=== PATIENT | female | born 1955 | race Caucasian/White ===

== ENCOUNTER → 2022-11-08 14:21 | Outpatient (CLI) | payer MEDICARE, BC, SELFPAY ==
[2022-11-08 15:07] LABS: Add Manual Diff / Slide Review NO; Basophils Absolute Auto 0 /uL (0-100); Basophils Percent Auto 0.4 % (0-2); Eosinophils Absolute Auto 200 /uL (0-450); Eosinophils Percent Auto 3.3 % (2-4); Hematocrit 39.1 % (36-46); Hemoglobin 13.1 g/dL (12.0-16.0); Lymphocytes Absolute Auto 1500 /uL (1100-4500); Lymphocytes Percent Auto 29.3 % (25-40); Mean Corpuscular HGB Conc 33.5 % (30-36); Mean Corpuscular Volume 89.6 fL (80-100); Monocytes Absolute Auto 500 /uL (0-900); Monocytes Percent Auto 9.8 % (3-14); Neutrophils Absolute Auto 2900 /uL (1500-7000); Neutrophils Percent Auto 57.2 % (50-75); Platelet Count 235 X10^3/uL (150-400); Red Blood Cell Count 4.37 X10^6/uL (4.0-5.2); Red Cell Distribution Width 13.9 % (11.6-14.8)
[2022-11-08 15:17] LABS: Alanine Aminotransferase 25 IU/L (<35); Albumin 3.8 g/dL (3.5-5.0); Albumin Globulin Ratio 1.2 (1.0-2.8); Alkaline Phosphatase 55 U/L (38-126); Aspartate Aminotransferase 18 IU/L (14-36); BUN Creatinine Ratio 23.1 (6-22); Bilirubin Total 0.3 mg/dL (0.2-1.3); Blood Urea Nitrogen 18 mg/dL (7-17); Calcium 8.8 mg/dL (8.4-10.2); Carbon Dioxide 35 mmol/L (22-32); Chloride 103 mmol/L (98-107); Estimated Glomerular Filt Rate > 60 mL/min (>60); Globulin 3.2 g/dL (1.7-4.1); Glucose 90 mg/dL (80-110); HEMOLYSIS < 15 (0-50); Potassium 4.2 mmol/L (3.4-5.1); Sodium 141 mmol/L (137-145)
[2022-11-08 15:33] LABS: Prolactin 15.3 ng/mL (3.0-18.6)
[2022-11-08 15:52] LABS: Thyroid Stimulating Hormone 1.76 uIU/mL (0.47-4.68)
[2022-11-08 16:22] LABS: Vitamin B12 467 pg/mL (239-931)
== END ==
PROVIDERS: PCP Nurse Practitioner Family; Referring Provider Nurse Practitioner Family; Visit Provider Nurse Practitioner Family
DX: G40.509 Epileptic seizures related to external causes, not intractable, without status epilepticus (principal); R41.82 Altered mental status, unspecified
CPT/HCPCS: 36415; 80053; 82607; 82746; 84146; 84443; 85025

== ENCOUNTER 2023-02-23 10:40 | Emergency (ER) | payer MEDICARE, BC, SELFPAY ==
--- NOTE | 2023-02-23 10:47 | ED_ITS ---
HPI - General Adult General Chief complaint: Seizure Stated complaint: seizure Time Seen by Provider: 02/23/23 10:46 History of Present Illness HPI narrative: 67-year-old female nonsmoker with history of Alzheimer's, seizures is a DNR, DNI with selective treatment presents from a local [facility] for evaluation of seizures. It was reported that she had 2 witnessed seizures that were described as relatively brief and shaking and twitching of her upper body. The 2 seizures were about 10 minutes apart and EMS was called for evaluation. The patient was postictal at the time of their arrival but had returned to baseline by the time they arrived here in the emergency department. Her last seizure was reported to have been about 1 month ago. Nursing staff reports no change in her dosing regimen or any chance of missed doses of her antiepileptics. She is had no recent trauma or injury, no surgical interventions, no fever or chills. Related Data Allergies Allergy/AdvReac Type Severity Reaction Status Date / Time No Known Drug Allergies Allergy Verified 02/23/23 10:52 Review of Systems Review of Systems ROS Unobtainable: Unobtainable due to mental status/LOC Exam Narrative Exam Narrative: GENERAL: [67] year old patient appears stated age. Well-developed patient, in mild distress. Pleasantly confused, opens eyes to discussion, dysarthria and aphasia at baseline per report from medics and staff HEAD: Atraumatic. Normocephalic. EYES: Pupils equal round and reactive. Extraocular motions intact. No scleral icterus. No injection or drainage. ENT: Nose without bleeding, purulent drainage. Throat without erythema, tonsillar hypertrophy or exudate. Airway patent. NECK: Trachea midline. Non tender CARDIOVASCULAR: Regular rate and rhythm without murmurs, gallops, or rubs. RESPIRATORY: Clear to auscultation. Breath sounds equal bilaterally. No wheezes, rales, or rhonchi. GASTROINTESTINAL: Abdomen soft, non-tender, nondistended. EXTREMITIES: No edema or joint tenderness. BACK: Nontender without deformity or crepitance. No flank tenderness. NEURO: Cranial nerves 2-12 grossly intact SKIN: No rash or erythema of visible areas Initial Vital Signs Initial Vital Signs: Vital Signs Temperature 97.5 F L 02/23/23 10:48 Pulse Rate 73 02/23/23 10:48 Respiratory Rate 18 02/23/23 10:48 Blood Pressure 120/58 L 08/26/23 10:48 Pulse Oximetry 97 02/23/23 10:48 Oxygen Delivery Method Room Air 02/23/23 10:48 Course Orders Ordered: Discontinued Medications Levetiracetam 500 mg/ Sodium (Chloride) 105 mls @ 420 mls/hr IV NOW ONE Stop: 02/23/23 10:47 Last Infusion: 02/23/23 11:15 Dose: 0 mls/hr Documented By: Admin: 02/23/23 10:59 Dose: 420 mls/hr Documented By: DONALD Medical Decision Making Lab Data 02/23/23 11:10 02/23/23 11:10 Labs: Lab Results 02/23/23 02/23/23 Range/Units 11:10 11:10 WBC 8.0 (4.5-11.0) X10^3/uL RBC 4.50 (4.0-5.2) X10^6/uL Hgb 13.6 (12.0-16.0) g/dL Hct 40.1 (36-46) % MCV 89.1 (80-100) fL MCH 30.3 (26-34) PG MCHC 34.1 (30-36) % RDW 13.8 (11.6-14.8) % Plt Count 184 (150-400) X10^3/uL Neut % (Auto) 75.8 H (50-75) % Lymph % (Auto) 15.0 L (25-40) % [place] % (Auto) 8.3 (3-14) % Eos % (Auto) 0.7 L (2-4) % Baso % (Auto) 0.2 (0-2) % Neut # (Auto) 6100 (2173-2105) /uL Lymph # (Auto) 1200 (3140-2628) /uL [place] # (Auto) 700 (0-900) /uL Eos # (Auto) 100 (0-450) /uL Baso # (Auto) 0 (0-100) /uL Sodium 137 (137-145) mmol/L Potassium 3.8 (3.4-5.1) mmol/L Chloride 106 (98-107) mmol/L Carbon Dioxide 25 (22-32) mmol/L BUN 14 (7-17) mg/dL Creatinine 0.69 (0.52-1.04) mg/dL Estimated GFR > 60 (>60) mL/min BUN/Creatinine Ratio 20.3 (6-22) Glucose 117 H (80-110) mg/dL Calcium 8.9 (8.4-10.2) mg/dL Magnesium 1.8 (1.6-2.3) mg/dL Total Bilirubin 0.6 (0.2-1.3) mg/dL AST 26 (14-36) IU/L ALT 32 (<35) IU/L Alkaline Phosphatase 45 (38-126) U/L Total Protein 6.9 (6.3-8.2) g/dL Albumin 3.9 (3.5-5.0) g/dL Globulin 3.0 (1.7-4.1) g/dL Albumin/Globulin Ratio 1.3 (1.0-2.8) MDM Narrative Medical decision making narrative: [67] year old patient presents with Multiple etiologies for patient's symptoms considered including, but not limited to: [Breakthrough seizure versus secondary cause such as electrolyte abnormality or other] Prior Charts reviewed in our EMR Primary Historian: patient's nursing staff through EMS Labs reviewed and interpreted by myself: no leukocytosis, no anemia, electrolytes within normal, glucose 117, History and physical reassuring, two brief seizures with return to baseline. No signs of secondary cause. Patient loaded with Keppra. Patient at baseline for duration Patient's symptoms improved over duration of stay with above-stated therapies. Findings and discharge diagnosis discussed with patient/family followed by verbalization of understanding Return precautions discussed with patient/family whom verbalize understanding of diagnosis and plan Discharge Plan Departure Patient Disposition: Home Clinical Impression: Epileptic seizure Instructions: DI for Seizure Disorder -- Adult Activity Restrictions/Additional Instructions: *You have been diagnosed with [breakthrough seizure] *What to do: *Please continue to take your regular medications as directed. *Please follow up with your primary care provider in 2-3 days, call for an appointment. Let them know you were seen in the Emergency Department and that we ask that you be seen in follow up. We will electronically transmit a record of today's note if your PCP is in our system *If you do not have a primary care provider please contact the [facility] Resource line at [phone]. They will ask some questions about your medical history and help get you set up with a doctor in the community. *Return to Emergency Department if you should have any new, worsening or concerning symptoms, such as [fever greater than 101 F, shaking chills, worsening pain, persistent vomiting or other bothersome symptoms] Referrals: Ce Awad ARNP [Primary Care Provider] - Stand Alone Forms: Patient Portal/API
[2023-02-23 10:48] VITALS: BP 120/58; PULSE 73; RESP 18; TEMP 36.4; O2SAT 97
[2023-02-23] MEDS: levETIRAcetam 500 MG in SODIUM CHLORIDE 0.9% 100 ML 420 MG IV (10:59)
[2023-02-23 11:31] LABS: Alanine Aminotransferase 32 IU/L (<35); Albumin 3.9 g/dL (3.5-5.0); Albumin Globulin Ratio 1.3 (1.0-2.8); Alkaline Phosphatase 45 U/L (38-126); Aspartate Aminotransferase 26 IU/L (14-36); BUN Creatinine Ratio 20.3 (6-22); Bilirubin Total 0.6 mg/dL (0.2-1.3); Blood Urea Nitrogen 14 mg/dL (7-17); Calcium 8.9 mg/dL (8.4-10.2); Carbon Dioxide 25 mmol/L (22-32); Chloride 106 mmol/L (98-107); Estimated Glomerular Filt Rate > 60 mL/min (>60); Glucose 117 mg/dL (80-110); HEMOLYSIS 39 (0-50); Magnesium 1.8 mg/dL (1.6-2.3); Potassium 3.8 mmol/L (3.4-5.1); Sodium 137 mmol/L (137-145); Total Protein 6.9 g/dL (6.3-8.2)
[2023-02-23 11:37] VITALS: BP 120/58; PULSE 80; RESP 14; O2SAT 96
[2023-02-23 11:43] LABS: Add Manual Diff / Slide Review NO; Basophils Absolute Auto 0 /uL (0-100); Basophils Percent Auto 0.2 % (0-2); Eosinophils Absolute Auto 100 /uL (0-450); Eosinophils Percent Auto 0.7 % (2-4); Hematocrit 40.1 % (36-46); Hemoglobin 13.6 g/dL (12.0-16.0); Lymphocytes Absolute Auto 1200 /uL (1100-4500); Mean Corpuscular HGB Conc 34.1 % (30-36); Mean Corpuscular Hemoglobin 30.3 PG (26-34); Mean Corpuscular Volume 89.1 fL (80-100); Monocytes Absolute Auto 700 /uL (0-900); Monocytes Percent Auto 8.3 % (3-14); Neutrophils Absolute Auto 6100 /uL (1500-7000); Neutrophils Percent Auto 75.8 % (50-75); Platelet Count 184 X10^3/uL (150-400); Red Cell Distribution Width 13.8 % (11.6-14.8)
[2023-02-23 11:47] VITALS: RESP 27; O2SAT 97
[2023-02-23 12:00] VITALS: BP 106/58; PULSE 90; RESP 25; O2SAT 98
[2023-02-26 13:45] LABS: Levetiracetam Keppra 23.6 ug/mL (10.0-40.0)
== END 2023-02-23 12:40 | disposition home or self-care (01) ==
PROVIDERS: Emergency Provider Emergency Medicine; PCP Nurse Practitioner Family
DX: G40.909 Epilepsy, unspecified, not intractable, without status epilepticus (principal)
CPT/HCPCS: 36415; 80053; 80177; 83735; 85025; 93005; 96365; 99284; J1953

== ENCOUNTER 2023-03-05 17:38 | Observation (INO) | payer MEDICARE, BC, SELFPAY ==
[2023-03-05] VITALS (45 sets, daily range): BP systolic 91–179; BP diastolic 53–96; PULSE 91–132; RESP 14–56; TEMP 36.7–38.1; O2SAT 86–100
--- NOTE | 2023-03-05 17:51 | DI.RAD.S_ITS ---
PROCEDURE: XR CHEST 1V INDICATIONS: suspected sepsis TECHNIQUE: One view of the chest was acquired. COMPARISON: None. FINDINGS: Surgical changes and devices: None. Lungs and pleura: Lungs are clear. No pleural effusions or pneumothorax. Mediastinum: Mediastinal contours appear normal. Heart size is normal. Bones and chest wall: No suspicious bony lesions. Overlying soft tissues appear unremarkable. IMPRESSION: Portable chest within normal limits for age. Dictated by: Jazmyn Aviles M.D. on 03/05/2023 at 18:30 Approved by: Jazmyn Aviles M.D. on 03/05/2023 at 18:30
[2023-03-05] MEDS: SODIUM CHLORIDE 0.9% 1,000 ML 1000 ML IV (18:06)
[2023-03-05 18:12] LABS: Add Manual Diff / Slide Review NO; Basophils Absolute Auto 0 /uL (0-100); Basophils Percent Auto 0.2 % (0-2); Eosinophils Absolute Auto 0 /uL (0-450); Eosinophils Percent Auto 0.2 % (2-4); Hematocrit 40.1 % (36-46); Lymphocytes Absolute Auto 1100 /uL (1100-4500); Lymphocytes Percent Auto 10.9 % (25-40); Mean Corpuscular Volume 88.3 fL (80-100); Monocytes Absolute Auto 900 /uL (0-900); Monocytes Percent Auto 9.6 % (3-14); Neutrophils Absolute Auto 7800 /uL (1500-7000); Neutrophils Percent Auto 79.1 % (50-75); Platelet Count 428 X10^3/uL (150-400); Red Blood Cell Count 4.54 X10^6/uL (4.0-5.2); Red Cell Distribution Width 13.3 % (11.6-14.8); White Blood Cell Count 9.9 X10^3/uL (4.5-11.0)
[2023-03-05 18:13] LABS: PTT Partial Thromboplastin Tim 43 SECONDS (26-36)
[2023-03-05 18:19] LABS: Lactate (Lactic Acid) 1.6 mmol/L (0.7-2.1)
[2023-03-05 18:20] LABS: Alanine Aminotransferase 51 IU/L (<35); Albumin 3.9 g/dL (3.5-5.0); Albumin Globulin Ratio 0.9 (1.0-2.8); Alkaline Phosphatase 110 U/L (38-126); Aspartate Aminotransferase 25 IU/L (14-36); BUN Creatinine Ratio 30.7 (6-22); Bilirubin Total 0.8 mg/dL (0.2-1.3); Blood Urea Nitrogen 23 mg/dL (7-17); Calcium 10.2 mg/dL (8.4-10.2); Carbon Dioxide 33 mmol/L (22-32); Chloride 101 mmol/L (98-107); Estimated Glomerular Filt Rate > 60 mL/min (>60); Globulin 4.4 g/dL (1.7-4.1); Glucose 121 mg/dL (80-110); Lipase 22 U/L (23-300); Potassium 4.2 mmol/L (3.4-5.1); Sodium 144 mmol/L (137-145); Total Protein 8.3 g/dL (6.3-8.2)
--- NOTE | 2023-03-05 18:31 | PC.NURSE ---
Pt arrives from [facility] via EMS. EMS states altered mental status and increasing HR for several days, per caregiver. Pt is restless, mildly aggressive, swings her arms at nurses/techs with a clenched fist. GCS 13. Mata placed, temp sensing probe.
[2023-03-05 18:38] LABS: HEMOLYSIS < 15 (0-50); Procalcitonin 0.27 ng/mL (<0.5)
[2023-03-05 19:04] LABS: COVID19 -Nasal RAPID Negative (Negative)
[2023-03-05 19:17] LABS: INR 1.3 (0.9-1.3)
[2023-03-05 19:26] LABS: Appearance Urine UA SL CLOUDY; Bilirubin Urine UA NEGATIVE (NEGATIVE); Color Urine UA YELLOW; Glucose Urine UA NEGATIVE (Negative); Ketones Urine UA TRACE (NEGATIVE); Leukocyte Esterase Urine UA TRACE (NEGATIVE); Nitrite Urine UA NEGATIVE (Negative); Occult Blood Urine UA 1+ (Negative); Protein Urine UA TRACE (Negative); Specific Gravity Urine UA 1.025 (1.000-1.035)
--- NOTE | 2023-03-05 19:37 | ED.AMS ---
HPI - Altered Mental Status General Chief Complaint: Altered Mental Status Stated Complaint: Nausea/Vomiting/High HR Time Seen by Provider: 03/05/23 17:52 Source: EMS Mode of arrival: EMS History of Present Illness HPI narrative: Patient 67-year-old female with a history of advanced Alzheimer's, seizures lives in a local memory care facility is a DNR DNI selective interventions presenting today with possible increase in seizures. Facility reports that she had a couple of seizures, also no real witness. AFTERNOON BABYSITTER called to report to earlier [place] doctor there may been seizures. Today possibly more confused. is at bedside he is a primary historian. Chart from 02/23/2023 has also been reviewed. She is noted to be febrile here in the ED low-grade 100.4 -100.6. She is talking gibberish which reports is baseline. She does not appear to be in pain. He to is an overall poor historian. Related Data Allergies Allergy/AdvReac Type Severity Reaction Status Date / Time No Known Drug Allergies Allergy Verified 02/23/23 10:52 Review of Systems Review of Systems ROS Unobtainable: All systems reviewed & are unremarkable except as noted in HPI and below Exam Initial Vital Signs Initial Vital Signs: Vital Signs Temperature 99.4 F 03/05/23 17:48 Pulse Rate 120 H 03/05/23 17:48 Respiratory Rate 18 03/05/23 17:48 Blood Pressure 179/96 H 03/05/23 17:48 Pulse Oximetry 100 03/05/23 17:48 Oxygen Delivery Method Room Air 03/05/23 17:48 GENERAL: Alert confused 67-year-old female HEENT: Head atraumatic,EOMI, pupils reactive, face symmetric, moist mucous membranes CARDIOVASCULAR: Regular rate and rhythm without murmurs, rubs or gallops. RESPIRATORY: Breath sounds equal bilaterally, no wheezes rales or rhonchi. ABDOMEN: Soft, nontender. Normoactive bowel sounds all 4 quadrants. No guarding or rebound. EXTREMITIES: Normal range of motion, no clubbing or edema. Neurovascularly intact NEUROLOGICAL: Moving all extremities no facial droop talking gibberish SKIN: Warm, dry, no laceration, no petechiae, no rashes or lesions. Course Orders Ordered: ED Orders 03/05/23 23:20 Education, smoking cessation ONGOING 03/05/23 23:30 Basic Metabolic Panel DAILY Complete Blood Count AUTO DIFF DAILY Acetaminophen (Acetaminophen 325 Mg Tablet) 650 mg PO Q6H [facility] Last Admin: 03/06/23 05:10 Dose: Not Given Documented By: Admin: 03/06/23 00:36 Dose: Not Given Documented By: MADELIN Calcium Carbonate (Calcium Carbonate 500 Mg Tab) 1,000 mg PO Q4HR PRN PRN Reason: Dyspepsia Enoxaparin Sodium (Enoxaparin 40 Mg/0.4 Ml Syringe) 40 mg SUBCUT DAILY [facility] Sodium Chloride (Normal Saline 0.9%) 1,000 mls @ 100 mls/hr IV CONT [facility] Last Infusion: 03/06/23 00:37 Dose: 100 mls/hr Documented By: Admin: 03/05/23 23:36 Dose: 100 mls/hr Documented By: BRANDI Ceftriaxone Sodium 1,000 mg/ (Sodium Chloride) 100 mls @ 200 mls/hr IV DAILY [facility] Naloxone HCl (Naloxone 0.4 Mg/Ml Vial) 0.2 mg IV Q2MIN PRN PRN Reason: Opiate Reversal Ondansetron HCl (Ondansetron 4 Mg/2 Ml Inj) 4 mg IV NOW PRN PRN Reason: Nausea And Vomiting Ondansetron HCl (Ondansetron 4 Mg Odt) 4 mg SL NOW PRN PRN Reason: Nausea And Vomiting Ondansetron HCl (Ondansetron 4 Mg/2 Ml Inj) 4 mg IV Q8HR PRN PRN Reason: Nausea And Vomiting Sennosides (Sennosides 8.6 Mg Tablet) 17.2 mg PO BID [facility] Last Admin: 03/06/23 00:37 Dose: Not Given Documented By: MADELIN Sodium Biphosphate/Sodium Phosphate (Fleets Enema) 1 each AR PRN PRN PRN Reason: Constipation Discontinued Medications Sodium Chloride (Normal Saline 0.9%) 1,000 mls @ 1,000 mls/hr IV BOLUS ONE Stop: 03/05/23 18:50 Last Infusion: 03/05/23 19:10 Dose: 0 mls/hr Documented By: Admin: 03/05/23 18:06 Dose: 1,000 mls/hr Documented By: ANGELLA Sodium Chloride (Normal Saline 0.9%) 1,000 mls @ 1,000 mls/hr IV BOLUS ONE Stop: 03/05/23 18:58 Last Admin: 03/05/23 18:24 Dose: Not Given Documented By: ANGELLA Ceftriaxone Sodium 1,000 mg/ (Sodium Chloride) 100 mls @ 200 mls/hr IV NOW ONE Stop: 03/05/23 20:08 Last Infusion: 03/05/23 21:09 Dose: 0 mls/hr Documented By: Admin: 03/05/23 20:35 Dose: 200 mls/hr Documented By: Ketorolac Tromethamine (Ketorolac 30 Mg/Ml Vial) 15 mg IV NOW ONE Stop: 03/05/23 19:43 Last Admin: 03/05/23 19:47 Dose: 15 mg Documented By: Lorazepam (Lorazepam 2 Mg/Ml Inj) 0.5 mg IV NOW ONE Stop: 03/05/23 19:43 Last Admin: 03/05/23 19:47 Dose: 0.5 mg Documented By: Vital Signs Vital signs: Vital Signs - 8 hr 03/05/23 21:30 03/05/23 21:30 03/05/23 21:45 Temperature 99.0 F 98.6 F Pulse Rate 97 H 95 H Respiratory Rate 15 15 Blood Pressure 94/55 L Pulse Oximetry 100 100 Oxygen Delivery Method Oxygen Flow Rate 03/05/23 22:00 03/05/23 22:00 03/05/23 22:15 Temperature 98.4 F 98.2 F Pulse Rate 92 H 93 H Respiratory Rate 15 18 Blood Pressure 92/55 L Pulse Oximetry 100 98 Oxygen Delivery Method Oxygen Flow Rate 03/05/23 22:30 03/05/23 22:30 03/05/23 22:45 Temperature 98.1 F 98.1 F Pulse Rate 91 H 93 H Respiratory Rate 16 14 Blood Pressure 137/91 H Pulse Oximetry 100 Oxygen Delivery Method Nasal Cannula Oxygen Flow Rate 2 03/05/23 23:00 03/05/23 23:01 03/05/23 23:01 Temperature 98.1 F 98.1 F Pulse Rate 97 H 101 H Respiratory Rate 15 16 Blood Pressure 91/54 L Pulse Oximetry 98 98 Oxygen Delivery Method Oxygen Flow Rate 03/05/23 23:15 Temperature 98.1 F Pulse Rate 92 H Respiratory Rate 17 Blood Pressure Pulse Oximetry 98 Oxygen Delivery Method Oxygen Flow Rate MDM - Altered Mental Status Lab Data 03/05/23 17:47 09/05/23 17:47 Labs: Lab Results 03/05/23 03/05/23 03/05/23 Range/Units 17:47 17:47 17:47 WBC 9.9 (4.5-11.0) X10^3/uL RBC 4.54 (4.0-5.2) X10^6/uL Hgb 14.0 (12.0-16.0) g/dL Hct 40.1 (36-46) % MCV 88.3 (80-100) fL MCH 31.0 (26-34) PG MCHC 35.0 (30-36) % RDW 13.3 (11.6-14.8) % Plt Count 428 H (150-400) X10^3/uL Neut % (Auto) 79.1 H (50-75) % Lymph % (Auto) 10.9 L (25-40) % [place] % (Auto) 9.6 (3-14) % Eos % (Auto) 0.2 L (2-4) % Baso % (Auto) 0.2 (0-2) % Neut # (Auto) 7800 H (6469-1839) /uL Lymph # (Auto) 1100 (2012-4772) /uL [place] # (Auto) 900 (0-900) /uL Eos # (Auto) 0 (0-450) /uL Baso # (Auto) 0 (0-100) /uL PT 15.0 H (10.1-12.7) SECONDS INR 1.3 (0.9-1.3) APTT 43 H (26-36) SECONDS Sodium 144 (137-145) mmol/L Potassium 4.2 (3.4-5.1) mmol/L Chloride 101 (98-107) mmol/L Carbon Dioxide 33 H (22-32) mmol/L BUN 23 H (7-17) mg/dL Creatinine 0.75 (0.52-1.04) mg/dL Estimated GFR > 60 (>60) mL/min BUN/Creatinine Ratio 30.7 H (6-22) Glucose 121 H (80-110) mg/dL Lactate (0.7-2.1) mmol/L Calcium 10.2 (8.4-10.2) mg/dL Total Bilirubin 0.8 (0.2-1.3) mg/dL AST 25 (14-36) IU/L ALT 51 H (<35) IU/L Alkaline Phosphatase 110 (38-126) U/L Total Protein 8.3 H (6.3-8.2) g/dL Albumin 3.9 (3.5-5.0) g/dL Globulin 4.4 H (1.7-4.1) g/dL Albumin/Globulin Ratio 0.9 L (1.0-2.8) Lipase 22 L (23-300) U/L Procalcitonin 0.27 (<0.5) ng/mL Urine Color Urine Appearance Urine pH (4.5-8.0) Ur Specific [place] (1.000-1.035) Urine Protein (Negative) Urine Glucose (UA) (Negative) g/dL Urine Ketones (NEGATIVE) Urine Occult Blood (Negative) Urine Nitrate (Negative) Urine Bilirubin (NEGATIVE) Urine Urobilinogen (0.2) E.U./dL Ur Leukocyte Esterase (NEGATIVE) Urine RBC (0-5/HPF) Urine WBC (0-5/HPF) Ur Squamous Epith Cells (0-5/HPF) Urine Bacteria (None) Ur Culture Indicated? SARS-CoV-2 (PCR) (Negative) 03/05/23 03/05/23 03/05/23 Range/Units 17:47 18:07 18:12 WBC (4.5-11.0) X10^3/uL RBC (4.0-5.2) X10^6/uL Hgb (12.0-16.0) g/dL Hct (36-46) % MCV (80-100) fL MCH (26-34) PG MCHC (30-36) % RDW (11.6-14.8) % Plt Count (150-400) X10^3/uL Neut % (Auto) (50-75) % Lymph % (Auto) (25-40) % [place] % (Auto) (3-14) % Eos % (Auto) (2-4) % Baso % (Auto) (0-2) % Neut # (Auto) (8242-4616) /uL Lymph # (Auto) (8783-4039) /uL [place] # (Auto) (0-900) /uL Eos # (Auto) (0-450) /uL Baso # (Auto) (0-100) /uL PT (10.1-12.7) SECONDS INR (0.9-1.3) APTT (26-36) SECONDS Sodium (137-145) mmol/L Potassium (3.4-5.1) mmol/L Chloride (98-107) mmol/L Carbon Dioxide (22-32) mmol/L BUN (7-17) mg/dL Creatinine (0.52-1.04) mg/dL Estimated GFR (>60) mL/min BUN/Creatinine Ratio (6-22) Glucose (80-110) mg/dL Lactate 1.6 (0.7-2.1) mmol/L Calcium (8.4-10.2) mg/dL Total Bilirubin (0.2-1.3) mg/dL AST (14-36) IU/L ALT (<35) IU/L Alkaline Phosphatase (38-126) U/L Total Protein (6.3-8.2) g/dL Albumin (3.5-5.0) g/dL Globulin (1.7-4.1) g/dL Albumin/Globulin Ratio (1.0-2.8) Lipase (23-300) U/L Procalcitonin (<0.5) ng/mL Urine Color Yellow Urine Appearance Sl cloudy Urine pH 5.5 (4.5-8.0) Ur Specific [place] 1.025 (1.000-1.035) Urine Protein Trace H (Negative) Urine Glucose (UA) Negative (Negative) g/dL Urine Ketones Trace H (NEGATIVE) Urine Occult Blood 1+ H (Negative) Urine Nitrate Negative (Negative) Urine Bilirubin Negative (NEGATIVE) Urine Urobilinogen 4.0 H (0.2) E.U./dL Ur Leukocyte Esterase Trace H (NEGATIVE) Urine RBC 0-1/hpf (0-5/HPF) Urine WBC 5-10/hpf H (0-5/HPF) Ur Squamous Epith Cells 0-1 /hpf (0-5/HPF) Urine Bacteria Few (2-10) H (None) Ur Culture Indicated? Specimen cultured SARS-CoV-2 (PCR) Negative (Negative) Imaging Data Chest x-ray: Radiologist's Impression: PROCEDURE:? XR CHEST 1V ? INDICATIONS:? suspected sepsis ? TECHNIQUE:? One view of the chest was acquired.? ? COMPARISON:? None. ? FINDINGS:? ? Surgical changes and devices:? None.? ? Lungs and pleura:? Lungs are clear.? No pleural effusions or pneumothorax.? ? Mediastinum:? Mediastinal contours appear normal.? Heart size is normal.? ? Bones and chest wall:? No suspicious bony lesions.? Overlying soft tissues appear unremarkable.? ? ? IMPRESSION:? Portable chest within normal limits for age. ? ? Dictated by: Jazmyn Avilse M.D. on 03/05/2023 at 18:30 ? ? [facility] Narrative Medical decision making narrative: Patient is 67-year-old female presenting today with altered mental status. Reports definite increased seizure activity over the past few days she is been in the ED now for almost 6 hours without any sort of seizure activity. She. She was given 0.5 mg of Ativan is quite sleepy now. She does develop fever here in the ED is eyes 100.6. Concern for underlying infection lowering seizure threshold. Possible UTI she has bacteria in her urine bacteria. No nitrates he does have leukocytes. She is given dose of Rocephin. She overall appears quite talkative he has no true focal deficits. Head CT was done and does not show any abnormality. Dr. De Souza updated patient's symptoms test results and accepts patient to observation Discharge Plan Departure Patient Disposition: Admitted as Observation Clinical Impression: Acute UTI, Acute metabolic encephalopathy Admit Date/Time: 03/05/23 23:20 Admit Provider: Dario Swan
[2023-03-05 19:41] LABS: pH Urine UA 5.5 (4.5-8.0)
[2023-03-05 19:42] LABS: Bacteria Urine Few (2-10); Culture Indicated Urine Specimen Cultured; RBC Urine 0-1/HPF (0-5/HPF); Squamous Epithelial Cell Urine 0-1 /HPF (0-5/HPF); WBC Urine 5-10/HPF (0-5/HPF)
--- NOTE | 2023-03-05 19:42 | DI.CT.S_ITS ---
PROCEDURE: CT ABDOMEN PELVIS W CON INDICATIONS: fever confusion TECHNIQUE: After the administration of IV contrast, axial sections were acquired from the lung bases to the pubic symphysis. Coronal and sagittal reformats were performed. For radiation dose reduction, the following was used: automated exposure control, adjustment of mA and/or kV according to patient size. COMPARISON: None. FINDINGS: Image quality: Evaluation limited by motion artifact as well as beam hardening artifact from patient's upper extremities. Lung bases: There is mild dependent atelectasis. Heart: Heart is normal in size. ABDOMEN: Liver: A few scattered hepatic cysts are demonstrated. Gallbladder: Within normal limits without calcified gallstones. Biliary ducts: No biliary ductal dilatation. Pancreas: Unremarkable. Spleen: Normal in size. Adrenal Glands: No adrenal nodules. Kidneys and Ureters: No hydronephrosis. Stomach and Bowel: Stomach and small bowel loops are normal in caliber and wall thickness. No evidence of appendicitis. There is moderate stool distention throughout the colon most prominent in the rectum suggestive of constipation or impaction. Peritoneum: No abnormal intraperitoneal fluid. No free air. Ventral Wall: No hernia. Abdominal Nodes: No retroperitoneal or mesenteric adenopathy by size criteria. Vessels: Aorta and inferior vena cava are normal in size. PELVIS: Pelvic Organs: Unremarkable. Bladder: There is a Mata catheter within a partially distended urinary bladder. Pelvic Nodes: No enlarged lymph nodes. Miscellaneous: No inguinal hernias are seen. Bones: Visualized osseous structures demonstrate no suspicious focal lesions. IMPRESSION: 1. Moderate stool distention throughout the colon most prominent within the rectum suggestive of constipation or impaction. No evidence of small-bowel obstruction. Dictated by: Coleman Farnsworth M.D. on 03/05/2023 at 21:48 Approved by: Coleman Farnsworth M.D. on 03/05/2023 at 21:53
--- NOTE | 2023-03-05 19:42 | DI.CT.S_ITS ---
PROCEDURE: CT HEAD/BRAIN WO CON INDICATIONS: confusion TECHNIQUE: Noncontrast 4.5 mm thick angled axial sections acquired from the foramen magnum to the vertex, with coronal and sagittal reformats. For radiation dose reduction, the following was used: automated exposure control, adjustment of mA and/or kV according to patient size. COMPARISON: None. FINDINGS: Image quality: There is motion artifact limiting evaluation. CSF spaces: Basal cisterns are patent. There are bilateral small choroidal fissure cysts. There is moderate cerebral volume loss, with resultant ventricular and sulcal prominence. Brain: No definite intracranial hemorrhage, mass, or mass effect. There are subcortical, periventricular and deep white matter hypodensities consistent with moderate chronic small vessel ischemic changes. The turner-white matter junction appears preserved. There is intracranial internal carotid artery atherosclerosis. Skull and face: Calvarium and visualized facial bones are intact, without suspicious lesions. Sinuses: Visualized sinuses and mastoids are clear. IMPRESSION: 1. Limited study demonstrates no definite acute intracranial abnormality. 2. Moderate cerebral volume loss and chronic white matter small vessel ischemic changes. Dictated by: Coleman Farnsworth M.D. on 03/05/2023 at 21:23 Approved by: oCleman Farnsworth M.D. on 03/05/2023 at 21:25
[2023-03-05] MEDS: LORazepam 2 MG/ML INJ 0.5 MG IV (19:47)
[2023-03-05] MEDS: KETOROLAC 30 MG/ML VIAL 15 MG IV (19:47)
[2023-03-05] MEDS: cefTRIAXone 1,000 MG in SODIUM CHLORIDE 0.9% 100 ML 200 MG IV (20:35)
--- NOTE | 2023-03-05 22:34 | PC.NURSE ---
Pt required suctioning of oral secretions. Small amount of secretions obtained. Remains somnolent at this time after receiving ativan per AUG.
[2023-03-05] MEDS: SODIUM CHLORIDE 0.9% 1,000 ML 100 ML IV (23:36)
[2023-03-06 00:34] VITALS: O2SAT 99
--- NOTE | 2023-03-06 01:54 | PM.HP.1 ---
History of Present Illness History of Present Illness Date Patient Seen: 03/06/23 Time Patient Seen: 01:54 Chief complaint: Nausea/Vomiting/High HR Narrative: The pt is a 67 yo who was brought from her Alzheimer memory care [facility] due to altered mental status. The pt was given ativan in the ER for unknown reasons and she was extremely somnolent during my interview and exam, unable to answer any questions, just snorious respirations. The staff thought she might have had a seizure but this was unwitnessed. A CT head and CT abd was performed in the ER and did not show any abnormalities other than constipation on the CT abd. In the ER, the was present and stated the pt was in her normal state of health and mental function, he was not present during my interview. Meds Home Medications and Allergies Allergies Allergy/AdvReac Type Severity Reaction Status Date / Time No Known Drug Allergies Allergy Verified 02/23/23 10:52 Exam Vital Signs (past 8 hours): - 03/05/23 18:22 03/05/23 18:25 03/05/23 18:30 Temperature 99.9 F H 100.2 F H 100.4 F H Pulse Rate 125 H 127 H 123 H Respiratory Rate 28 H 28 H 36 H Blood Pressure Pulse Oximetry 91 93 94 Oxygen Delivery Method Oxygen Flow Rate 03/05/23 18:35 03/05/23 18:40 03/05/23 18:45 Temperature 100.6 F H 100.6 F H 100.6 F H Pulse Rate 126 H 122 H 132 H Respiratory Rate 56 H 42 H 46 H Blood Pressure Pulse Oximetry 93 92 92 Oxygen Delivery Method Oxygen Flow Rate 03/05/23 18:50 03/05/23 18:55 03/05/23 19:00 Temperature 100.6 F H 100.6 F H 100.6 F H Pulse Rate 122 H 121 H 119 H Respiratory Rate 48 H Blood Pressure Pulse Oximetry 96 93 Oxygen Delivery Method Oxygen Flow Rate 03/05/23 19:05 03/05/23 19:10 03/05/23 19:10 Temperature 100.6 F H 100.6 F H Pulse Rate 120 H 121 H Respiratory Rate Blood Pressure 121/66 Pulse Oximetry 93 94 Oxygen Delivery Method Oxygen Flow Rate 03/05/23 19:15 03/05/23 19:47 03/05/23 19:20 Temperature 100.4 F H 100.4 F H 100.4 F H Pulse Rate 116 H 118 H Respiratory Rate 35 H Blood Pressure Pulse Oximetry 93 96 Oxygen Delivery Method Oxygen Flow Rate 03/05/23 19:30 03/05/23 19:35 03/05/23 19:40 Temperature 100.4 F H 100.2 F H 100.2 F H Pulse Rate 114 H 117 H 115 H Respiratory Rate 30 H 30 H 34 H Blood Pressure Pulse Oximetry 93 92 95 Oxygen Delivery Method Oxygen Flow Rate 03/05/23 19:50 03/05/23 19:53 03/05/23 19:53 Temperature 100.2 F H 100.4 F H Pulse Rate 115 H 112 H Respiratory Rate 44 H 24 Blood Pressure 130/61 Pulse Oximetry 93 91 Oxygen Delivery Method Oxygen Flow Rate 03/05/23 19:55 03/05/23 20:00 03/05/23 20:00 Temperature 100.2 F H 100.4 F H Pulse Rate 113 H 113 H Respiratory Rate 21 Blood Pressure 115/59 L Pulse Oximetry 95 95 Oxygen Delivery Method Oxygen Flow Rate 03/05/23 20:05 03/05/23 20:10 03/05/23 20:40 Temperature 100.4 F H 100.4 F H 99.9 F H Pulse Rate 108 H 105 H Respiratory Rate 23 21 Blood Pressure Pulse Oximetry 94 Oxygen Delivery Method Oxygen Flow Rate 03/05/23 20:15 03/05/23 20:35 03/05/23 20:38 Temperature 100.2 F H 99.9 F H Pulse Rate 104 H 102 H Respiratory Rate 22 17 Blood Pressure Pulse Oximetry 92 86 L 95 Oxygen Delivery Method Room Air Nasal Cannula Oxygen Flow Rate 2 03/05/23 20:38 03/05/23 20:40 03/05/23 20:45 Temperature 99.9 F H 99.9 F H Pulse Rate 100 H 101 H Respiratory Rate 18 20 Blood Pressure 116/54 L Pulse Oximetry 100 100 Oxygen Delivery Method Oxygen Flow Rate 03/05/23 20:50 03/05/23 20:55 03/05/23 21:00 Temperature 99.9 F H 99.7 F H Pulse Rate 102 H 97 H Respiratory Rate 17 15 Blood Pressure 106/53 L Pulse Oximetry 100 100 Oxygen Delivery Method Oxygen Flow Rate 03/05/23 21:00 03/05/23 21:15 03/05/23 21:30 Temperature 99.7 F H 99.3 F Pulse Rate 100 H 98 H Respiratory Rate 16 15 Blood Pressure 94/55 L Pulse Oximetry 100 100 Oxygen Delivery Method Nasal Cannula Oxygen Flow Rate 2 03/05/23 21:30 03/05/23 21:45 03/05/23 22:00 Temperature 99.0 F 98.6 F Pulse Rate 97 H 95 H Respiratory Rate 15 15 Blood Pressure 92/55 L Pulse Oximetry 100 100 Oxygen Delivery Method Oxygen Flow Rate 03/05/23 22:00 03/05/23 22:15 03/05/23 22:30 Temperature 98.4 F 98.2 F Pulse Rate 92 H 93 H Respiratory Rate 15 18 Blood Pressure 137/91 H Pulse Oximetry 100 98 Oxygen Delivery Method Oxygen Flow Rate 03/05/23 22:30 03/05/23 22:45 03/05/23 23:00 Temperature 98.1 F 98.1 F 98.1 F Pulse Rate 91 H 93 H 97 H Respiratory Rate 16 14 15 Blood Pressure Pulse Oximetry 100 98 Oxygen Delivery Method Nasal Cannula Oxygen Flow Rate 2 03/05/23 23:01 03/05/23 23:01 03/05/23 23:15 Temperature 98.1 F 98.1 F Pulse Rate 101 H 92 H Respiratory Rate 16 17 Blood Pressure 91/54 L Pulse Oximetry 98 98 Oxygen Delivery Method Oxygen Flow Rate 03/05/23 23:30 03/05/23 23:35 03/05/23 23:35 Temperature 98.1 F 98.1 F Pulse Rate 93 H 101 H Respiratory Rate 17 20 Blood Pressure 129/61 Pulse Oximetry 100 100 Oxygen Delivery Method Oxygen Flow Rate 03/05/23 23:27 03/06/23 00:34 Temperature 98.2 F Pulse Rate 107 H Respiratory Rate 18 Blood Pressure 117/71 Pulse Oximetry 100 99 Oxygen Delivery Method Room Air Oxygen Flow Rate 3 Oxygen Delivery Method Room Air Oxygen Flow Rate 3 Const General: lethargic Resp Auscultation: bronchovesicular breath sounds and rhonchi Cardio Rate: regular rate GI Auscultation: normal bowel sounds Neuro General: patient obtunded and unable to assess gait Objective Labs 03/05/23 17:47 03/05/23 17:47 Labs: Laboratory Results - last 24 hr 03/05/23 03/05/23 03/05/23 17:47 17:47 17:47 WBC 9.9 RBC 4.54 Hgb 14.0 Hct 40.1 MCV 88.3 MCH 31.0 MCHC 35.0 RDW 13.3 Plt Count 428 H Neut % (Auto) 79.1 H Lymph % (Auto) 10.9 L [place] % (Auto) 9.6 Eos % (Auto) 0.2 L Baso % (Auto) 0.2 Neut # (Auto) 7800 H Lymph # (Auto) 1100 [place] # (Auto) 900 Eos # (Auto) 0 Baso # (Auto) 0 PT 15.0 H INR 1.3 APTT 43 H Sodium 144 Potassium 4.2 Chloride 101 Carbon Dioxide 33 H BUN 23 H Creatinine 0.75 Estimated GFR > 60 BUN/Creatinine Ratio 30.7 H Glucose 121 H Lactate Calcium 10.2 Total Bilirubin 0.8 AST 25 ALT 51 H Alkaline Phosphatase 110 Total Protein 8.3 H Albumin 3.9 Globulin 4.4 H Albumin/Globulin Ratio 0.9 L Lipase 22 L Procalcitonin 0.27 Urine Color Urine Appearance Urine pH Ur Specific [place] Urine Protein Urine Glucose (UA) Urine Ketones Urine Occult Blood Urine Nitrate Urine Bilirubin Urine Urobilinogen Ur Leukocyte Esterase Urine RBC Urine WBC Ur Squamous Epith Cells Urine Bacteria Ur Culture Indicated? SARS-CoV-2 (PCR) 03/05/23 03/05/23 03/05/23 17:47 18:07 18:12 WBC RBC Hgb Hct MCV MCH MCHC RDW Plt Count Neut % (Auto) Lymph % (Auto) [place] % (Auto) Eos % (Auto) Baso % (Auto) Neut # (Auto) Lymph # (Auto) [place] # (Auto) Eos # (Auto) Baso # (Auto) PT INR APTT Sodium Potassium Chloride Carbon Dioxide BUN Creatinine Estimated GFR BUN/Creatinine Ratio Glucose Lactate 1.6 Calcium Total Bilirubin AST ALT Alkaline Phosphatase Total Protein Albumin Globulin Albumin/Globulin Ratio Lipase Procalcitonin Urine Color Yellow Urine Appearance Sl cloudy Urine pH 5.5 Ur Specific [place] 1.025 Urine Protein Trace H Urine Glucose (UA) Negative Urine Ketones Trace H Urine Occult Blood 1+ H Urine Nitrate Negative Urine Bilirubin Negative Urine Urobilinogen 4.0 H Ur Leukocyte Esterase Trace H Urine RBC 0-1/hpf Urine WBC 5-10/hpf H Ur Squamous Epith Cells 0-1 /hpf Urine Bacteria Few (2-10) H Ur Culture Indicated? Specimen cultured SARS-CoV-2 (PCR) Negative Assessment & Plan Assessment and plan (1) Acute metabolic encephalopathy: Status: Acute Plan Since the pt was not witnessed to have a seizure, it is hard to diagnose this as a cause of her confusion. I feel the ativan given in the ER altered her wakefulness so it is difficult for me to assess this. The labs were reviewed and the UA was not remarkable, with a neg Nitrates and only trace Leukocytes, she did receive Rocephin in the ER. repeating labs , CBC in the am, cultures taken, CT head and abd reviewed, Currently on 3 lpm NC but SaO2 is 97% and resting comfortably
[2023-03-06 02:30] VITALS: BP 91/62; PULSE 106; O2SAT 97
[2023-03-06 04:00] VITALS: BP 109/68; PULSE 99; RESP 16; TEMP 37.1; O2SAT 99
--- NOTE | 2023-03-06 05:05 | PC.NURSE ---
patient arrived to unit somnolent and unable to answer admitting questions. Able to state name only. unsure of patients baseline or how patients seizures manifest. ER informed that 0.5mg of Ativan given but stated that a seizure was not witnessed.
[2023-03-06 05:19] LABS: MRSA (Nasal) PCR Not Detected (Not Detect)
[2023-03-06 06:45] LABS: Add Manual Diff / Slide Review NO; Basophils Absolute Auto 0 /uL (0-100); Basophils Percent Auto 0.2 % (0-2); Eosinophils Absolute Auto 100 /uL (0-450); Eosinophils Percent Auto 0.8 % (2-4); Hematocrit 34.8 % (36-46); Hemoglobin 11.7 g/dL (12.0-16.0); Lymphocytes Absolute Auto 800 /uL (1100-4500); Lymphocytes Percent Auto 8.6 % (25-40); Mean Corpuscular HGB Conc 33.7 % (30-36); Mean Corpuscular Hemoglobin 30.6 PG (26-34); Mean Corpuscular Volume 90.8 fL (80-100); Monocytes Absolute Auto 700 /uL (0-900); Monocytes Percent Auto 7.5 % (3-14); Neutrophils Absolute Auto 8100 /uL (1500-7000); Neutrophils Percent Auto 82.9 % (50-75); Platelet Count 365 X10^3/uL (150-400); Red Blood Cell Count 3.83 X10^6/uL (4.0-5.2); White Blood Cell Count 9.8 X10^3/uL (4.5-11.0)
[2023-03-06 06:50] LABS: BUN Creatinine Ratio 33.3 (6-22); Blood Urea Nitrogen 25 mg/dL (7-17); Calcium 8.6 mg/dL (8.4-10.2); Carbon Dioxide 31 mmol/L (22-32); Chloride 108 mmol/L (98-107); Estimated Glomerular Filt Rate > 60 mL/min (>60); Glucose 107 mg/dL (80-110); HEMOLYSIS < 15 (0-50); Potassium 3.9 mmol/L (3.4-5.1); Sodium 145 mmol/L (137-145)
[2023-03-06 08:06] VITALS: BP 100/56; PULSE 90; RESP 16; O2SAT 98
--- NOTE | 2023-03-06 11:39 | PM.HP.1 ---
History of Present Illness History of Present Illness Date Patient Seen: 03/06/23 Time Patient Seen: 11:39 Chief complaint: Nausea/Vomiting/High HR Narrative: This is a 67 F with Alzheimer's dementia with behavioral disturbance, seizure disorder admitted for possible UTI by overnight provider after she was confused per report. She was given ativan for agitation and possible seizure in the ER with subsequent lethargy. She possibly has a UTI based on urinalysis, though it is somewhat questionable and culture results are pending. Patient is unable to contribute to discussion and additional history is obtained from bedside staff. Patient per history appears to be at her baseline mentation currently. She intermittently refuses medications. Later on, she did develop rash after cefriaxone administration so further antibiotics were held and she is recommended to continue with macrobid at discharge. As discussed below she was discharged home the afternoon of admission day. [facility] Medical History Alzheimer disease Dementia with behavioral disturbance Seizure disorder Meds Home Medications and Allergies Home Medications Medication Instructions Recorded Confirmed Type acetaminophen 325 mg tablet 650 mg PO Q4H PRN Pain (Scale 03/06/23 03/06/23 History Score 1-3) alendronate 70 mg tablet 70 mg PO QWEEK 03/06/23 03/06/23 History bisacodyl 5 mg tablet,delayed 10 mg PO BEDTIME 03/06/23 03/06/23 History release calcium carbonate 500 mg calcium 500 mg PO BID 03/06/23 03/06/23 History (1,250 mg) chewable tablet cholecalciferol (vitamin D3) 25 25 mcg PO BID 03/06/23 03/06/23 History mcg (1,000 unit) tablet (Vitamin D3) docusate sodium 100 mg tablet 100 mg PO DAILY 03/06/23 03/06/23 History gabapentin 300 mg capsule 300 mg PO BEDTIME 03/06/23 03/06/23 History hydroxyzine pamoate 25 mg capsule 25 mg PO Q6H 03/06/23 03/06/23 History levetiracetam 250 mg tablet 500 mg PO BID 03/06/23 03/06/23 History lorazepam 0.5 mg tablet 0.5 - 1 mg PO Q4H PRN Agitation 03/06/23 03/06/23 History magnesium hydroxide 400 mg/5 mL 400 mg PO BEDTIME PRN Constipation 03/06/23 03/06/23 History oral suspension (Milk of Magnesia) nitrofurantoin macrocrystal 100 mg 100 mg PO Q12H 5 days #10 caps 03/06/23 Rx capsule polyethylene glycol 3350 17 gram 17 g PO DAILY 03/06/23 03/06/23 History oral powder packet trazodone 150 mg tablet 75 mg PO BID 03/06/23 03/06/23 History Allergies Allergy/AdvReac Type Severity Reaction Status Date / Time ceftriaxone Allergy Intermediate Hives Verified 03/06/23 17:58 Review of Systems Review of Systems Narrative: Unable to perform given patient's underlying alzheimer Exam Vital Signs (past 8 hours): - 03/06/23 04:00 03/06/23 08:06 Temperature 98.8 F Pulse Rate 99 H 90 Respiratory Rate 16 16 Blood Pressure 109/68 100/56 L Pulse Oximetry 99 98 Oxygen Flow Rate 3 3 Oxygen Delivery Method Room Air Oxygen Flow Rate 3 Narrative Exam Narrative: Chronically ill appearing elderly female, moaning and reaching out. Does not follow commands. No edema or joint effusions Developed rash on LLE after antibiotics, mild erythematous macules Lungs CTA b/l CV tachycardic, mild, with regular rhythm and no m/r/g. Objective Labs 03/06/23 06:14 03/06/23 06:14 Labs: Laboratory Results - last 24 hr 03/05/23 03/05/23 03/05/23 17:47 17:47 17:47 WBC 9.9 RBC 4.54 Hgb 14.0 Hct 40.1 MCV 88.3 MCH 31.0 MCHC 35.0 RDW 13.3 Plt Count 428 H Neut % (Auto) 79.1 H Lymph % (Auto) 10.9 L [place] % (Auto) 9.6 Eos % (Auto) 0.2 L Baso % (Auto) 0.2 Neut # (Auto) 7800 H Lymph # (Auto) 1100 [place] # (Auto) 900 Eos # (Auto) 0 Baso # (Auto) 0 PT 15.0 H INR 1.3 APTT 43 H Sodium 144 Potassium 4.2 Chloride 101 Carbon Dioxide 33 H BUN 23 H Creatinine 0.75 Estimated GFR > 60 BUN/Creatinine Ratio 30.7 H Glucose 121 H Lactate Calcium 10.2 Total Bilirubin 0.8 AST 25 ALT 51 H Alkaline Phosphatase 110 Total Protein 8.3 H Albumin 3.9 Globulin 4.4 H Albumin/Globulin Ratio 0.9 L Lipase 22 L Procalcitonin 0.27 Urine Color Urine Appearance Urine pH Ur Specific [place] Urine Protein Urine Glucose (UA) Urine Ketones Urine Occult Blood Urine Nitrate Urine Bilirubin Urine Urobilinogen Ur Leukocyte Esterase Urine RBC Urine WBC Ur Squamous Epith Cells Urine Bacteria Ur Culture Indicated? Nasal Screen MRSA (PCR) SARS-CoV-2 (PCR) 03/05/23 03/05/23 03/05/23 17:47 18:07 18:12 WBC RBC Hgb Hct MCV MCH MCHC RDW Plt Count Neut % (Auto) Lymph % (Auto) [place] % (Auto) Eos % (Auto) Baso % (Auto) Neut # (Auto) Lymph # (Auto) [place] # (Auto) Eos # (Auto) Baso # (Auto) PT INR APTT Sodium Potassium Chloride Carbon Dioxide BUN Creatinine Estimated GFR BUN/Creatinine Ratio Glucose Lactate 1.6 Calcium Total Bilirubin AST ALT Alkaline Phosphatase Total Protein Albumin Globulin Albumin/Globulin Ratio Lipase Procalcitonin Urine Color Yellow Urine Appearance Sl cloudy Urine pH 5.5 Ur Specific [place] 1.025 Urine Protein Trace H Urine Glucose (UA) Negative Urine Ketones Trace H Urine Occult Blood 1+ H Urine Nitrate Negative Urine Bilirubin Negative Urine Urobilinogen 4.0 H Ur Leukocyte Esterase Trace H Urine RBC 0-1/hpf Urine WBC 5-10/hpf H Ur Squamous Epith Cells 0-1 /hpf Urine Bacteria Few (2-10) H Ur Culture Indicated? Specimen cultured Nasal Screen MRSA (PCR) SARS-CoV-2 (PCR) Negative 03/06/23 03/06/23 03/06/23 00:48 06:14 06:14 WBC 9.8 RBC 3.83 L Hgb 11.7 L Hct 34.8 L MCV 90.8 MCH 30.6 MCHC 33.7 RDW 13.0 Plt Count 365 Neut % (Auto) 82.9 H Lymph % (Auto) 8.6 L [place] % (Auto) 7.5 Eos % (Auto) 0.8 L Baso % (Auto) 0.2 Neut # (Auto) 8100 H Lymph # (Auto) 800 L [place] # (Auto) 700 Eos # (Auto) 100 Baso # (Auto) 0 PT INR APTT Sodium 145 Potassium 3.9 Chloride 108 H Carbon Dioxide 31 BUN 25 H Creatinine 0.75 Estimated GFR > 60 BUN/Creatinine Ratio 33.3 H Glucose 107 Lactate Calcium 8.6 Total Bilirubin AST ALT Alkaline Phosphatase Total Protein Albumin Globulin Albumin/Globulin Ratio Lipase Procalcitonin Urine Color Urine Appearance Urine pH Ur Specific [place] Urine Protein Urine Glucose (UA) Urine Ketones Urine Occult Blood Urine Nitrate Urine Bilirubin Urine Urobilinogen Ur Leukocyte Esterase Urine RBC Urine WBC Ur Squamous Epith Cells Urine Bacteria Ur Culture Indicated? Nasal Screen MRSA (PCR) Not detected SARS-CoV-2 (PCR) Assessment & Plan Assessment & Plan narrative: 1. Presumed toxic encephalopathy, resolved 2. Possible acute cystitis 3. Seziure disorder with possible recent seizure 4. Alzheimer's dementia with behavioral disturbance Given patient's rapid improvement her altered mentation is presumed secondary to benzodiazepine given here in the ER. She intermittently refuses medications, apparently that is baseline for her and per staff at [facility] she appears at her baseline currently. She may have an acute cystitis, though her vitals have been stable and without leukocytosis and abrupt return to normal I do not suspect any sepsis. She was given ceftriaxone though developed rash. Given her seizures, there are reduced seizure thresholds with a number of antibiotics, so discharge is recommended with 5 days of nitrofurantoin. Given her underlying difficulty with medication compliance, treating seizures will be difficult. I recommend either discussion with neurology as an outpatient for further medication recommendations, or consideration of hospice at [facility] facility. Code: DNR / DNI with limited interventions, surrogate is patient's spouse I have utilized all available immediate resources to obtain, update, or review the patient's current medications. Dispo: Discharge back to [facility] with macrobid. Additional history obtained via discussion with ER provider, overnight hospitalist, and bedside RN. Note this will serve as the patient's discharge summary as well.
--- NOTE | 2023-03-06 13:15 | CM.DANOTE ---
Initial DCP Assessment Note: Pt is a 67-year old with advanced early onset Alzheimer's dementia, and seizures. Lives in a local memory care facility, presents today with increased seizures since her last visit here at the ED on 02/23/23. RN PROCEDURE reviewed chart, consulted with inpt team, and called pt's spouse in assessing d/c needs. Pt's baseline is bedbound, or wheelchair bound, often hallucinates, and mostly speaks in gibberish. Unable to make own needs known, however pt's is supportive and able to assist with decision making and care plan. Inpt evaluation determined that pt was presumed to have toxic encephalopathy, which has since resolved. Payor: Medicare PCP: Ce Awad CT imaging was negative for any abnormalities. At time of d/c, pt was resting comfortably, plan is return to [facility] with continued monitoring. RN PROCEDURE called pt's and discussed plan, he expressed understanding, no further needs are identified at this time. Discharge Planning/Care Management CM Discharge Assessment Start: 03/06/23 13:04 Freq: Status: Active Protocol: Document 03/06/23 13:05 DPL (Rec: 03/06/23 13:14 DPL [id number]) Discharge Planning Assessment Assigned [employer] BARTOLO Head DPOA/Assigned Designee Name Jonathan Inman, spouse Advance Directives? Yes History Provided By Family Member Expected Length of Stay 1 Has Patient been admitted in last 30 No days? Comment She did have an ED visit on -. Prior Living Arrangements Assisted Living Comment [facility] Type of transporation used prior to Relies on Others admit Comment Pt is wheelchair bound, cannot bear weight or walk. Facility Name Admitted From: [facility] Willing to Return to Facility? Yes Independent with ADL's No Is patient alert and oriented? No Needs Assistance With Bathing,Eating,Grooming,Meal Prep,Toileting,Managing Medications,Home Chores / Shopping Comment Pt is dependent on all care needs, requires 24-hour care. Caregiver for Another No DME Already Rented / Owned Bath Bench,Hospital Bed, Wheelchair Discharge Plan Home Transportation Arrangement Facility will transport at d/c . Has Agency SNF been contacted Yes Whiteboard Updated in Patient Room with No name and ext. # of [employer] Review Status In Process Please Provide Date Initial DC 03/06/23 Assessment Was Performed
--- NOTE | 2023-03-06 18:07 | PC.NURSE ---
Talked to the RN at [facility] to establish pt's baseline data this am at approximately 0900. Confirmed pt was at baseline agitated, restless, unable to communicate needs, and often hallucinating. Transport arrived at 1235 to pickup pt. Helped to dress and mariana lift to wheelchair. Called [facility] to give report. The receiving nurse was unavailable so left name and extension to have her call for report. Never received a call back.
--- NOTE | 2023-03-06 18:08 | PM.DS.1 ---
History of Present Illness History of Present Illness Date Patient Seen: 03/06/23 Time Patient Seen: 18:08 Chief complaint: Nausea/Vomiting/High HR Narrative: This is a 67 F with Alzheimer's dementia with behavioral disturbance, seizure disorder admitted for possible UTI by overnight provider after she was confused per report. She was given ativan for agitation and possible seizure in the ER with subsequent lethargy. She possibly has a UTI based on urinalysis, though it is somewhat questionable and culture results are pending. Patient is unable to contribute to discussion and additional history is obtained from bedside staff. Patient per history appears to be at her baseline mentation currently. She intermittently refuses medications. Later on, she did develop rash after cefriaxone administration so further antibiotics were held and she is recommended to continue with macrobid at discharge. As discussed below she was discharged home the afternoon of admission day. Discharge Providers Provider Date of admission: 03/05/23 23:20 Discharge Date: 03/06/23 Primary care physician: NABIL Carlin Discharge provider: Davis Cason DO Summary Hospital Course Discharge Diagnosis: Please see H&P Hospital Course: Please see H&P for hospital course Time Spent with Patient Time spent: Greater than 30 minutes Exam Vital Signs (past 8 hours): Oxygen Delivery Method Room Air Oxygen Flow Rate 3 Narrative Exam Narrative: Chronically ill appearing elderly female, moaning and reaching out. Does not follow commands. No edema or joint effusions Developed rash on LLE after antibiotics, mild erythematous macules Lungs CTA b/l CV tachycardic, mild, with regular rhythm and no m/r/g. Objective Labs 03/06/23 06:14 03/06/23 06:14 Labs: Laboratory Results - last 24 hr 03/05/23 03/05/23 03/05/23 17:47 17:47 17:47 WBC 9.9 RBC 4.54 Hgb 14.0 Hct 40.1 MCV 88.3 MCH 31.0 MCHC 35.0 RDW 13.3 Plt Count 428 H Neut % (Auto) 79.1 H Lymph % (Auto) 10.9 L [place] % (Auto) 9.6 Eos % (Auto) 0.2 L Baso % (Auto) 0.2 Neut # (Auto) 7800 H Lymph # (Auto) 1100 [place] # (Auto) 900 Eos # (Auto) 0 Baso # (Auto) 0 PT 15.0 H INR 1.3 APTT 43 H Sodium 144 Potassium 4.2 Chloride 101 Carbon Dioxide 33 H BUN 23 H Creatinine 0.75 Estimated GFR > 60 BUN/Creatinine Ratio 30.7 H Glucose 121 H Lactate Calcium 10.2 Total Bilirubin 0.8 AST 25 ALT 51 H Alkaline Phosphatase 110 Total Protein 8.3 H Albumin 3.9 Globulin 4.4 H Albumin/Globulin Ratio 0.9 L Lipase 22 L Procalcitonin 0.27 Urine Color Urine Appearance Urine pH Ur Specific [place] Urine Protein Urine Glucose (UA) Urine Ketones Urine Occult Blood Urine Nitrate Urine Bilirubin Urine Urobilinogen Ur Leukocyte Esterase Urine RBC Urine WBC Ur Squamous Epith Cells Urine Bacteria Ur Culture Indicated? Nasal Screen MRSA (PCR) SARS-CoV-2 (PCR) 03/05/23 03/05/23 03/05/23 17:47 18:07 18:12 WBC RBC Hgb Hct MCV MCH MCHC RDW Plt Count Neut % (Auto) Lymph % (Auto) [place] % (Auto) Eos % (Auto) Baso % (Auto) Neut # (Auto) Lymph # (Auto) [place] # (Auto) Eos # (Auto) Baso # (Auto) PT INR APTT Sodium Potassium Chloride Carbon Dioxide BUN Creatinine Estimated GFR BUN/Creatinine Ratio Glucose Lactate 1.6 Calcium Total Bilirubin AST ALT Alkaline Phosphatase Total Protein Albumin Globulin Albumin/Globulin Ratio Lipase Procalcitonin Urine Color Yellow Urine Appearance Sl cloudy Urine pH 5.5 Ur Specific [place] 1.025 Urine Protein Trace H Urine Glucose (UA) Negative Urine Ketones Trace H Urine Occult Blood 1+ H Urine Nitrate Negative Urine Bilirubin Negative Urine Urobilinogen 4.0 H Ur Leukocyte Esterase Trace H Urine RBC 0-1/hpf Urine WBC 5-10/hpf H Ur Squamous Epith Cells 0-1 /hpf Urine Bacteria Few (2-10) H Ur Culture Indicated? Specimen cultured Nasal Screen MRSA (PCR) SARS-CoV-2 (PCR) Negative 03/06/23 03/06/23 03/06/23 00:48 06:14 06:14 WBC 9.8 RBC 3.83 L Hgb 11.7 L Hct 34.8 L MCV 90.8 MCH 30.6 MCHC 33.7 RDW 13.0 Plt Count 365 Neut % (Auto) 82.9 H Lymph % (Auto) 8.6 L [place] % (Auto) 7.5 Eos % (Auto) 0.8 L Baso % (Auto) 0.2 Neut # (Auto) 8100 H Lymph # (Auto) 800 L [place] # (Auto) 700 Eos # (Auto) 100 Baso # (Auto) 0 PT INR APTT Sodium 145 Potassium 3.9 Chloride 108 H Carbon Dioxide 31 BUN 25 H Creatinine 0.75 Estimated GFR > 60 BUN/Creatinine Ratio 33.3 H Glucose 107 Lactate Calcium 8.6 Total Bilirubin AST ALT Alkaline Phosphatase Total Protein Albumin Globulin Albumin/Globulin Ratio Lipase Procalcitonin Urine Color Urine Appearance Urine pH Ur Specific [place] Urine Protein Urine Glucose (UA) Urine Ketones Urine Occult Blood Urine Nitrate Urine Bilirubin Urine Urobilinogen Ur Leukocyte Esterase Urine RBC Urine WBC Ur Squamous Epith Cells Urine Bacteria Ur Culture Indicated? Nasal Screen MRSA (PCR) Not detected SARS-CoV-2 (PCR) [facility] Medical History Alzheimer disease Dementia with behavioral disturbance Seizure disorder Discharge Plan Discharge Plan Patient Disposition: Released, Other Transfer to: [facility] Provider Discharge Comment: This is a 67 F with Alzheimer's dementia with behavioral disturbance, seizure disorder admitted for possible UTI. She was given ativan for agitation and possible seizure in the ER with subsequent lethargy. She possibly has a UTI. She developed rash with ceftriaxone, recommended for macrobid given recent seizure risk. She has returned to her baseline mentation at this time. I highly recommend either consultation with neurology for medication management, or consideration of hospice in this patient and transition to full comfort. I certify the postop hospital alf care is medically necessary on a continuing basis for any conditions for which he/ she received care during this hospitalization.: Yes The receiving facility has agreed to accept transfer and provide medical treatment.: Yes Discharge orders & Medications Discharge Orders: Discharge (Order); Ordered 03/06/23 Ordered By: Davis Cason Prescriptions: New nitrofurantoin macrocrystal 100 mg capsule 100 mg PO Q12H 5 Days Qty: 10 0RF Rx Instructions: must administer with a meal/food Continued acetaminophen 325 mg Tablet 650 mg PO Q4H PRN (Reason: Pain (Scale Score 1-3)) polyethylene glycol 3350 17 gram Powder In Packet 17 g PO DAILY alendronate 70 mg tablet 70 mg PO QWEEK Rx Instructions: every week on Sundays lorazepam 0.5 mg tablet 0.5 - 1 mg PO Q4H PRN (Reason: Agitation) magnesium hydroxide [Milk of Magnesia] 400 mg/5 mL Suspension 400 mg PO BEDTIME PRN (Reason: Constipation) levetiracetam 250 mg tablet 500 mg PO BID trazodone 150 mg tablet 75 mg PO BID gabapentin 300 mg capsule 300 mg PO BEDTIME bisacodyl 5 mg Tablet,Delayed Release (Dr/Ec) 10 mg PO BEDTIME calcium carbonate 500 mg calcium (1,250 mg) Tablet,Chewable 500 mg PO BID docusate sodium 100 mg Tablet 100 mg PO DAILY hydroxyzine pamoate 25 mg capsule 25 mg PO Q6H cholecalciferol (vitamin D3) [Vitamin D3] 25 mcg (1,000 unit) Tablet 25 mcg PO BID Follow up/Referrals: Ce Awad ARNP [Primary Care Provider] - Discharge Health Status Precautions: [place] Diet/Activity/Treatments Diet: Diet as Tolerated Diet comment: As per previous diet, no changes Activity: No restrictions. Discharge Data Primary Care Provider: Ce Awad Attending Provider: Dario Swan Admit Date/Time: 03/05/23 23:20 Discharges patient from system. Discharge Date/Time: 03/06/23 13:00
[2023-03-06 22:35] LABS: Acinetobacter calcoa-baumannii Not Detected (Not Detect); Bacteroides fragilis Not Detected (Not Detect); Enterobacter cloacae complex Not Detected (Not Detect); Enterobacterales Not Detected (Not Detect); Enterococcus faecalis Not Detected (Not Detect); Enterococcus faecium Not Detected (Not Detect); Haemophilus influenzae Not Detected (Not Detect); Klebsiella aerogenes Not Detected (Not Detect); Listeria monocytogenes Not Detected (Not Detect); Neisseria meningitidis Not Detected (Not Detect); Proteus species Not Detected (Not Detect); Salmonella species Not Detected (Not Detect); Serratia marcescens Not Detected (Not Detect); Staphylococcus epidermidis Not Detected (Not Detect); Staphylococcus lugdunensis Not Detected (Not Detect); Staphylococcus species DETECTED (Not Detect); Streptococcus agalactiae (Gr B Not Detected (Not Detect); Streptococcus pneumonia Not Detected (Not Detect); Streptococcus pyogenes (Gr A) Not Detected (Not Detect); Streptococcus species Not Detected (Not Detect)
[2023-03-06 22:36] LABS: Candida albicans Not Detected (Not Detect); Candida auris Not Detected (Not Detect); Candida glabrata Not Detected (Not Detect); Candida krusei Not Detected (Not Detect); Candida parapsilosis Not Detected (Not Detect); Candida tropicalis Not Detected (Not Detect); Cryptococcus neoformans/gatti Not Detected (Not Detect); Pseudomonas aeruginosa Not Detected (Not Detect); Stenotrophomonas maltophilia Not Detected (Not Detect)
[2023-03-07 15:22] LABS: Levetiracetam Keppra 14.2 ug/mL (10.0-40.0)
== END 2023-03-06 13:00 | disposition home or self-care (01) ==
LOC: ED 23:20 → AC 23:21 → ICU 23:46
PROVIDERS: Emergency Medicine; Admitting Provider Internal Medicine; Emergency Provider Emergency Medicine; PCP Nurse Practitioner Family; Referring Provider Emergency Medicine; Visit Provider Internal Medicine
DX: R41.82 Altered mental status, unspecified (principal); G40.909 Epilepsy, unspecified, not intractable, without status epilepticus; G30.9 Alzheimer's disease, unspecified; F02.818 Dementia in other diseases classified elsewhere, unspecified severity, with other behavioral disturbance; Z66 Do not resuscitate; Z20.822 Contact with and (suspected) exposure to COVID-19
CPT/HCPCS: 36415; 70450; 71045; 74177; 80048; 80053; 80177; 81001; 83605; 83690; 84145; 85025; 85610; 85730; 87040; 87086; 87154; 87186; 87635; 87797; 96361; 96365; 96375; 99285; C9803; G0378; J0696; J1885; J2060; Q9967